=== PATIENT | male | born 1960 | race Caucasian/White ===

== ENCOUNTER 2017-05-24 13:33 | Inpatient (IN) | payer MEDICARE, MEDICAID ==
[~2017-05-24] VITALS: Ht 177.8 cm; Wt 88.5 kg
--- NOTE | 2017-05-24 13:36 | NUR ---
BIBRA FROM HOME DT HEADACHE SINCE 399, AND SHARP L SIDED CHEST PAIN R/T LUE X 1500, 02/12. PATIENT IS AAO4. APPEARS IN NO APPARENT DISTRESS. RESPIRATION EVEN AND UNLABORED/ VSS
[2017-05-24] MEDS ORDERED: MORPHINE SULFATE INJ 2 MG/ML DISP.SYRIN IV ONE (14:30)
[2017-05-24] MEDS ORDERED: ONDANSETRON HCL/PF 4 MG/2 ML VIAL IVP ONE (14:30)
[2017-05-24] MEDS ORDERED: IV NS 0.9% 1,000 ML BAG IV ONE (14:30)
--- NOTE | 2017-05-24 14:35 | NUR ---
[facility]
[2017-05-24 14:44] LABS: BASOPHILS % (AUTO) 0.4 % (0.0-2.0); EOSINOPHILS # (AUTO) 0.1 /CMM (0.0-0.7); EOSINOPHILS % (AUTO) 0.8 % (0.0-6.0); HEMATOCRIT 44 % (39-51); HEMOGLOBIN 14.7 g/dL (13.5-17.5); LYMPHOCYTES # (AUTO) 2.6 /CMM (0.8-4.8); LYMPHOCYTES % (AUTO) 37.9 % (20.0-44.0); MEAN CORPUSCULAR HEMOGLOBIN 30 PG (26.0-33.0); MEAN CORPUSCULAR HGB CONC 33 g/dl (31.0-36.0); MEAN CORPUSCULAR VOLUME 91 fL (80-96); MONOCYTES # (AUTO) 0.6 /CMM (0.1-1.30); MONOCYTES % (AUTO) 8.1 % (2.0-12.0); NEUTROPHILS # (AUTO) 3.7 /CMM (1.8-8.9); NEUTROPHILS % (AUTO) 52.8 % (43.0-81.0); PLATELET COUNT (AUTO) 291 /CMM (150-450); RED BLOOD CELL COUNT(AUTO) 4.83 MIL/uL (4.5-6.0)
[2017-05-24] MEDS ORDERED: ONDANSETRON HCL/PF 4 MG/2 ML VIAL ONE (14:47)
--- NOTE | 2017-05-24 14:52 | NUR ---
MORPHINE ORDER DUPLICATE-- ADMINISTERED 6MG MORPHINE ORDERED
[2017-05-24 14:54] LABS: CARBON DIOXIDE 25 mmol/L (21-32); CHLORIDE 103 mmol/L (98-107); GLUCOSE 107 mg/dL (74-106); POTASSIUM 3.4 mmol/L (3.5-5.1); SODIUM SERUM 140 mmol/L (136-145); UREA NITROGEN, BLOOD 16 mg/dL (7-18)
[2017-05-24 15:00] LABS: ALANINE AMINOTRANSFERASE 27 U/L (12-78); ALBUMIN 4.3 g/dL (3.4-5.0); ALKALINE PHOSPHATASE 88 U/L (46-116); ASPARTATE AMINOTRANSFERASE 19 U/L (15-37); BILIRUBIN,DIRECT 0.1 mg/dL (0.0-0.2); BILIRUBIN,TOTAL 0.4 mg/dL (0.2-1.0); LIPASE 185 U/L (73-393); TOTAL PROTEIN, SERUM 8.5 g/dL (6.4-8.2)
[2017-05-24] MEDS ORDERED: MORPHINE SULFATE INJ 10 MG/ML DISP.SYRIN IV ONE (15:00)
[2017-05-24] MEDS ORDERED: MORPHINE SULFATE 10 MG/ML IV ONE (15:00)
[2017-05-24 15:01] LABS: INR 0.99 (0.87-1.13); PROTHROMBIN TIME 10.3 SECS (9.5-12.7)
[2017-05-24 15:04] LABS: TROPONIN I < 0.017 ng/mL (0.00-0.056)
[2017-05-24] MEDS ORDERED: NITROGLYCERIN 0.4 MG/TAB BOTTLE SL ONE (15:30)
[2017-05-24] MEDS ORDERED: ASPIRIN 81 MG TAB.CHEW PO ONE (15:30)
[2017-05-24] MEDS ORDERED: POTASSIUM CHLORIDE 20 MEQ TAB.PRT.SR PO ONE ×2 (15:30→15:51)
[2017-05-24] MEDS ORDERED: ALPR1TAB7 PO (15:31)
[2017-05-24] MEDS ORDERED: RALT400T PO (15:31)
[2017-05-24] MEDS ORDERED: ETRA200T PO (15:31)
[2017-05-24] MEDS ORDERED: OMEP40CA37 PO (15:31)
[2017-05-24] MEDS ORDERED: CYCL5TAB PO (15:31)
[2017-05-24] MEDS ORDERED: LISI10TA5 PO (15:31)
[2017-05-24] MEDS ORDERED: DARU1TAB PO (15:31)
[2017-05-24] MEDS ORDERED: ASPI-991 PO (15:31)
[2017-05-24] MEDS ORDERED: HYDR-548 PO (15:31)
[2017-05-24] MEDS ORDERED: ACYC800T PO (15:31)
[2017-05-24] MEDS ORDERED: NITROGLYCERIN 0.4 MG/TAB BOTTLE ONE (15:51)
[2017-05-24] MEDS ORDERED: ASPIRIN 81 MG TAB.CHEW ONE (15:52)
--- NOTE | 2017-05-24 16:25 | NUR ---
314-1 TELE Addendum: 05/24/17 at 1626 by ANTONIO [id number]
[2017-05-24] MEDS ORDERED: ACETAMINOPHEN 325 MG TABLET PO PRN ×2 (16:30→16:45)
[2017-05-24] MEDS ORDERED: ALPRAZOLAM 1 MG TABLET PO PRN ×2 (16:30→16:45)
[2017-05-24] MEDS ORDERED: HYDROCODONE/APAP 10/325MG 1 EA TABLET PO PRN ×2 (16:30→16:45)
[2017-05-24] MEDS ORDERED: ZOLPIDEM TARTRATE 5 MG TABLET PO PRN ×2 (16:30→16:45)
[2017-05-24] MEDS ORDERED: MORPHINE SULFATE INJ 2 MG/ML DISP.SYRIN IV PRN ×2 (16:30→16:45)
[2017-05-24] MEDS ORDERED: MAGNESIUM HYDROXIDE 30 ML UDC PO PRN ×2 (16:30→16:45)
[2017-05-24] MEDS ORDERED: HYDROCODONE/APAP 5/325MG 1 EACH TABLET PO PRN (16:30)
[2017-05-24] MEDS ORDERED: ONDANSETRON HCL/PF 4 MG/2 ML VIAL IVP PRN ×2 (16:30→16:45)
[2017-05-24] MEDS ORDERED: Z GUARD REMEDY 2 OZ OINT TP PRN ×2 (16:30→16:45)
[2017-05-24] MEDS ORDERED: MAG HYDROX/AL HYDROX/SIMETH 30 ML UDC PO PRN ×2 (16:30→16:45)
[2017-05-24] MEDS ORDERED: NITROGLYCERIN 0.4 MG/TAB BOTTLE SL PRN ×2 (16:30→16:45)
--- NOTE | 2017-05-24 16:30 | NUR ---
GAVE REPORT TO GABRIEL SONI TELE ROOM 312-[address] DEACON MICHELLE
--- NOTE | 2017-05-24 16:45 | NUR ---
RECEIVED PT FROM ER IN STABLE CONDITION. PT IS ALERT AND ORIENTED X4. PT ON RA, RESPIRATIONS ARE EVEN AND UNLABORED. PT WAS ABLE TO AMBULATE TO THE BED INDEPENDENTLY. SAFETY MEASURES ARE IN PLACE, CALL LIGHT IS IN REACH. WILL CONTINUE TO MONITOR.
[2017-05-24 17:00] VITALS: BP 107/70
[2017-05-24] MEDS ORDERED: RALTEGRAVIR POTASSIUM 400 MG TABLET PO SCH (17:00)
[2017-05-24] MEDS ORDERED: CYCLOBENZAPRINE 10 MG TABLET PO SCH (17:00)
[2017-05-24] MEDS: CYCLOBENZAPRINE 10 MG TABLET PO SCH (18:10)
[2017-05-24] MEDS: RALTEGRAVIR POTASSIUM 400 MG TABLET PO SCH (18:10)
--- NOTE | 2017-05-24 18:49 | NUR ---
RN NOTES PT IS SITTING UP IN BED, RESTING COMFORTABLY. PT ON RA, RESPIRATIONS ARE EVEN AND UNLABORED. PT DENIES ANY PAIN AT THIS TIME. IV ON LAC INTACT AND PATENT, SL. PT NEEDS WERE MET AND ALL MEDS WERE GIVEN ORDERED. SAFETY MEASURES ARE IN PLACE, CALL LIGHT IS IN REACH. WILL ENDORSE TO WINDOWS LAPTOP TECHNICIAN RN FOR CONTINUITY OF CARE.
--- NOTE | 2017-05-24 19:30 | NUR ---
RN NOTES PT IS SITTING UP IN BED, RESTING COMFORTABLY. PT ON RA, RESPIRATIONS ARE EVEN AND UNLABORED. PT DENIES ANY PAIN AT THIS TIME. IV ON LAC INTACT AND PATENT, SL. PT NEEDS WERE MET AND ALL MEDS WERE GIVEN ORDERED. SAFETY MEASURES ARE IN PLACE, CALL LIGHT IS IN REACH. WILL CONTINUE TO MONITOR.
[2017-05-24 20:10] VITALS: BP 105/62
[2017-05-24 20:11] VITALS: BP 105/62
[2017-05-24 22:00] VITALS: BP 105/62
[2017-05-24] MEDS ORDERED: SIMVASTATIN 20 MG TABLET PO SCH ×2 (22:00)
[2017-05-25 00:58] VITALS: BP 132/80
[2017-05-25] MEDS: HYDROCODONE/APAP 5/325MG 1 EACH TABLET PO PRN ×3 (02:33→12:46)
[2017-05-25 04:00] VITALS: BP 114/82
--- NOTE | 2017-05-25 06:13 | NUR ---
SPEECH LANG PATH NOTE PATIENT STABLE. SLEPT WELL. ALL NEEDS MET AND ATTENDED TO. NPO SINCE MIDNIGHT FOR CARDIO CONSULT. WILL ENDORSE TO DAY SHIFT FOR ESEQUIEL.
--- NOTE | 2017-05-25 07:51 | NUR ---
RN NOTES RECEIVED PT IN BED RESTING COMFORTABLY, ALERT ORIENTED, VERBALLY RESPONSIVE, ABLE TO MAKE NEEDS KNOWN. RESPIRATIONS EVEN AND LABORED, PAIN MANAGEMENT ORDERED. LAC IV SITE PATENT AND INTACT, NO REDNESS OR INFILTRATION NOTED.NPO AT THIS TIME FOR POSSIBLE STRESS TEST. KEPT CLEAN DRY AND COMFORTABLE, CALL LIGHT WITHIN EASY REACH, SAFETY MEASURES IN PLACE, WILL CONTINUE TO MONITOR
[2017-05-25 08:00] VITALS: BP 134/96
[2017-05-25] MEDS: CYCLOBENZAPRINE 10 MG TABLET PO SCH ×3 (08:32→17:00)
[2017-05-25 08:33] VITALS: BP 134/96
[2017-05-25] MEDS: RALTEGRAVIR POTASSIUM 400 MG TABLET PO SCH ×2 (09:00→17:00)
[2017-05-25] MEDS ORDERED: LISINOPRIL (10MG) 10 MG TABLET PO SCH ×2 (09:00)
[2017-05-25] MEDS ORDERED: ACYCLOVIR 800 MG TABLET PO SCH ×2 (09:00)
[2017-05-25] MEDS ORDERED: ASPIRIN EC 81 MG TABLET.DR PO SCH ×4 (09:00)
[2017-05-25] MEDS ORDERED: REGADENOSON 0.4 MG/5 ML DISP.SYRIN IVP ONE (09:00)
--- NOTE | 2017-05-25 11:04 | NUR ---
RN NOTES PT REFUSED ISENTRESS X3 NURSING EDUCATION REINFORCED, PER PT WILL TAKE LATER ON TODAY
--- NOTE | 2017-05-25 17:15 | NUR ---
RN NOTES PT AWAKE ALERT ORIENTED, VERBALLY RESPONSIVE, ABLE TO MAKE NEEDS KNOWN. RESPIRATIONS EVEN AND LABORED, CONTINUED ON PAIN MANAGEMENT ORDERED, TO CONTINUE CURRENT MEDICATIONS AT HOME . LAC IV SITE AND ID BAND REMOVED WITH NO ASE NOTED.PATIENT WITH DISCHARGE ORDER, ALL DISCHARGE INSTRUCTION REVIEWED AND SIGNED BY PT WITH VERBAL UNDERSTANDING NOTED.PATIENT STATES HE HAS AN APPOINTMENT NEXT WEEK WITH PRIMARY CARE PHYSICIAN, INSTRUCTED TO CALL 911 OR RETURN TO ER IN CASE OF EMERGENCY. NO SKIN ISSUES AT TIME OF DISCHARGE, ASSISTED LOBBY BY RN, PATIENT DISCHARGED IN STABLE CONDITION TO HOME
== END 2017-05-25 17:22 | disposition home or self-care (01) | DRG 392 ==
LOC: ER 13:51 → TELE 16:44 → MED 05-25 09:20
DX: K21.9 Gastro-esophageal reflux disease without esophagitis (principal); E78.5 Hyperlipidemia, unspecified; E87.6 Hypokalemia; G44.209 Tension-type headache, unspecified, not intractable; I10 Essential (primary) hypertension; J40 Bronchitis, not specified as acute or chronic; F41.9 Anxiety disorder, unspecified
CPT/HCPCS: 36415; 70450-TC; 71010-TC; 80048-TC; 80076-TC; 83605-TC; 83690-TC; 84484-TC; 85025-TC; 85378-TC; 85730-TC; 87081-TC; A4606; A9502; J2270; J2274; J2405; J2785; Z7610

== ENCOUNTER 2017-06-06 08:10 | Emergency (ER) | payer MEDICARE, MEDICAID ==
[~2017-06-06] VITALS: Ht 177.8 cm; Wt 88.5 kg
[~2017-06-06 08:10] MED LIST: ACYC800T PO; ALPR1TAB7 PO; ASPI-991 PO; CYCL5TAB PO; DARU1TAB PO; ETRA200T PO; HYDR-548 PO; LISI10TA5 PO; OMEP40CA37 PO; RALT400T PO
--- NOTE | 2017-06-06 08:10 | NUR ---
C/O FACE AND MOUTH SWELLING X1 DAY ENVIRONMENTAL TEST TECHNICIAN AFTER DENTAL APPT
[2017-06-06] MEDS ORDERED: FAMOTIDINE/PF INJ 20 MG/2 ML VIAL IV ONE (08:30)
[2017-06-06] MEDS ORDERED: EPINEPHRINE (1:1000) MDV 30 MG/30ML VIAL SUBCUT ONE (08:30)
[2017-06-06] MEDS ORDERED: methylPREDNISolone SOD SUCC 125 MG/2ML VIAL IV ONE (08:30)
[2017-06-06] MEDS ORDERED: diphenhydrAMINE HCL 50 MG/ML VIAL IV ONE (08:30)
--- NOTE | 2017-06-06 11:16 | NUR ---
Patient discharged to home in stable condition. Written and verbal after care instructions given. Patient verbalizes understanding of instruction.
--- NOTE | 2017-06-06 11:16 | NUR ---
IV removed. Catheter intact and site benign. Pressure and 4x4 applied to site. No bleeding noted.
[2017-06-06 11:17] VITALS: BP 140/85
== END 2017-06-06 11:18 | disposition home or self-care (01) ==
LOC: ER 08:12
DX: T78.3XXA Angioneurotic edema, initial encounter (principal); T46.4X5A Adverse effect of angiotensin-converting-enzyme inhibitors, initial encounter; Y92.89 Other specified places as the place of occurrence of the external cause; Z79.82 Long term (current) use of aspirin; I10 Essential (primary) hypertension; Z88.8 Allergy status to other drugs, medicaments and biological substances; Z79.899 Other long term (current) drug therapy
CPT/HCPCS: 96372; 96374; 96375; 99284; A4606; J0171; J1200; J2930; J3490; Z7610